=== PATIENT | female | born 2005 | race Caucasian/White ===

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

== ENCOUNTER 2024-03-15 13:33 | Emergency (ER) | payer SELFPAY ==
[2024-03-15 13:35] VITALS: BP 108/57; PULSE 119; RESP 18; TEMP 36.6; O2SAT 97
[2024-03-15 13:43] VITALS: BP 108/57; PULSE 119; RESP 18; TEMP 36.6; O2SAT 97
[2024-03-15 14:23] LABS: Source Nasopharynx
[2024-03-15] MEDS: Lactated Ringers 1,000 ML 1000 ML IV (15:00)
[2024-03-15] MEDS: Ketorolac 15 MG/ML VIAL IVP (15:00)
[2024-03-15] MEDS: Acetaminophen 325 MG TAB 650 MG PO (15:00)
[2024-03-15 15:04] LABS: COVID-19 PCR POSITIVE (Negative)
[2024-03-15] MEDS: Ondansetron 4 MG/2 ML VIAL IVP (15:17)
[2024-03-15 15:19] LABS: Abs Immature Grans 0.02 10^3/uL (0.0-0.06); Absolute Basophil Count 0.03 10^3/uL (0.0-0.2); Absolute Eosinophil Count 0.02 10^3/uL (0.0-0.7); Absolute Monocyte Count 0.61 10^3/uL (0.1-0.8); Absolute Neutrophil Count 4.74 10^3/uL (1.2-6.7); Basophils % 0.5 %; Eosinophils % 0.3 %; HCT 36.9 % (36.0-46.0); HGB 12.7 g/dL (11.2-15.7); Immature Grans % 0.3 %; Lymphocytes % 6.9 %; MCH 29.2 pg (27.0-33.0); MCHC 34.4 % (32.0-36.0); MCV 85 fL (80-95); MPV 9.9 fL (8.0-11.0); Monocytes % 10.5 %; Neutrophils % 81.5 %; Platelet Count 222 10^3/uL (130-400); RBC 4.35 10^6/uL (3.93-5.22); RDW 12.5 % (11.7-14.6); RDW-SD 38.3 fL; WBC 5.82 10^3/uL (4.4-10.8)
[2024-03-15 15:35] LABS: Mono Screening Negative (Negative)
[2024-03-15 15:38] LABS: ALT 23 U/L (14-59); AST 12 U/L (15-37); Albumin 4.3 g/dL (3.4-5.0); Alkaline Phosphatase 82 U/L (46-116); Anion Gap 11.2 mmol/L (3-11); BUN 14 mg/dL (7-18); Bilirubin, Total 0.4 mg/dL (0.2-1.0); CO2 24.8 mmol/L (21.0-32.0); CREATININE 0.8 mg/dL (0.55-1.02); Calcium 9.3 mg/dL (8.5-10.1); Chloride 106 mmol/L (98-107); Estimated GFR 108.78 (mL/min/1.73m2); Glucose 92 mg/dL (74-106); Potassium 3.8 mmol/L (3.5-5.1); Sodium 142 mmol/L (136-145); Total Protein 8.1 g/dL (6.4-8.2)
[2024-03-15 16:26] VITALS: BP 98/50; PULSE 109; RESP 16; O2SAT 100
--- NOTE | 2024-03-15 16:30 | ED.GENADUL_ITS ---
Discharge Plan Disposition Patient Disposition: Home Condition: Stable Discharge Details Clinical Impression: COVID Primary Care Provider: Unknown,Unknown ED Provider: Ricardo Araujo Home Meds and New Rx's Prescriptions: Continued norethindrone-e.estradiol-iron [ (28)] 1.5 mg-30 mcg (21)/75 mg (7) tablet 1 tab PO DAILY Qty: 84 5RF albuterol sulfate 90 mcg/actuation HFA aerosol inhaler 2 puff inhalation Q6H PRN (Reason: shortness of breath or wheezing) Qty: 6.7 0RF Discharge Instructions Instructions: COVID-19 (Coronavirus Disease 2019) (ED) Additional Instructions: Please drink plenty fluids and allow for plenty of rest. Please maintain home isolation for the next 5 days. Wear a high-quality mask if you must be around others at home and in public. Do not go places where you are unable to wear a mask. For travel guidance, see CDC?s Travel webpage. Do not travel. Stay home and separate from others as much as possible. Use a separate bathroom, if possible. Take steps to improve ventilation at home, if possible. Don?t share personal household items, like cups, towels, and utensils. Monitor your symptoms. If you have an emergency warning sign (like trouble breathing), seek emergency medical care immediately. You may end isolation after day 5 if your symptoms are improving and you are fever free for 24 hours without the use of fever reducing medication. If your symptoms are not improving at day 5 continue to isolate until symptoms are improving and you are fever free for 24 hours without the use of fever reducing medication. Please contact your primary care physician to arrange follow-up. Return to the ER immediately for any worsening or new concerning symptoms. HPI General Mode of arrival: ambulatory . Date/Time Provider Initiated Documentation: 03/15/24 14:02 . Limitations to Documentation: no limitations . Information obtained by: patient . HPI Narrative: 18-year-old female presents with chief complaint of generally not feeling well. Patient notes she started have sore throat last night. She has had fever, body aches, nausea and vomiting. Symptoms are moderate. She notes she has been able to drink much fluid and feels dehydrated. She is requesting IV fluids. Patient notes sore throat is not currently present. Related Data Home Medications Medication Instructions Recorded Confirmed norethindrone 1.5 mg-ethinyl 1 tab PO DAILY #84 tabs 05/30/23 03/15/24 estradiol 30 mcg(21)/iron 75 mg(7) tablet ( ()) albuterol sulfate 90 mcg/actuation 2 puff inhalation Q6H PRN 06/23/23 03/15/24 aerosol inhaler shortness of breath or wheezing #6.7 grams Previous Rx's Medication Instructions Recorded norethindrone 1.5 mg-ethinyl 1 tab PO DAILY #84 tabs 05/30/23 estradiol 30 mcg(21)/iron 75 mg(7) tablet ( ()) albuterol sulfate 90 mcg/actuation 2 puff inhalation Q6H PRN 06/23/23 aerosol inhaler shortness of breath or wheezing #6.7 grams Allergies Allergy/AdvReac Type Severity Reaction Status Date / Time No Known Allergies Allergy Verified 03/15/24 13:39 General Stated Complaint: Sorethroat CARSON: 3 Review of Systems Constitutional Constitutional: Reports as per HPI ENT Ears, Nose, Mouth, and Throat: Reports as per HPI Cardiovascular Cardiovascular: Denies dyspnea Respiratory Respiratory: Denies cough and Denies dyspnea Exam Const General: cooperative and no acute distress HENSC Mouth: moist mucous membranes Eyes Conjunctivae: normal conjunctivae Sclera: normal sclerae Neck Neck: trachea midline and supple Resp Auscultation: clear to auscultation bilaterally, no rales, no rhonchi and no wheezes Cardio Rate: tachycardic Rhythm: regular rhythm GI Palpation: soft, not firm, no guarding, no masses, not rigid and nontender Skin General skin exam: no rashes or lesions noted Neuro General: patient alert, patient awake and tone normal Extrem General: no edema Psych Appearance: grossly normal Mental Status: mental status grossly normal Course Vital Signs Vital signs: Vital Signs Temperature 36.6 C 03/15/24 13:35 Pulse 119 H 03/15/24 13:35 Respiratory Rate 18 03/15/24 13:35 Blood Pressure 108/57 L 03/15/24 13:35 Pulse Oximetry 97 03/15/24 13:35 Temperature 36.6 C 03/15/24 13:43 Temperature Source Tympanic 03/15/24 13:43 Pulse 109 H 03/15/24 16:26 Respiratory Rate 16 03/15/24 16:26 Respiratory Effort Normal, Non-Labored 03/15/24 13:43 Blood Pressure 98/50 L 03/15/24 16:26 Blood Pressure Position Sitting 03/15/24 13:43 Pulse Oximetry 100 03/15/24 16:26 Oxygen Delivery Method Room Air 03/15/24 16:26 Oxygen Flow Rate 0 03/15/24 16:26 Pain Level 0 03/15/24 16:26 Comment No OTC pain relief 03/15/24 13:43 Lab/Test Results Lab/Test Results: Laboratory Tests Range/Units 03/15/24 03/15/24 14:06 15:00 WBC (4.4-10.8) 10^3/uL 5.82 RBC (3.93-5.22) 10^6/uL 4.35 Hgb (11.2-15.7) g/dL 12.7 Hct (36.0-46.0) % 36.9 MCV (80-95) fL 85 MCH (27.0-33.0) pg 29.2 MCHC (32.0-36.0) % 34.4 RDW (11.7-14.6) % 12.5 Plt Count (130-400) 10^3/uL 222 MPV (8.0-11.0) fL 9.9 Immature Gran % % 0.3 Neutrophils % % 81.5 Lymphocytes % % 6.9 Monocytes % % 10.5 Eosinophils % % 0.3 Basophils % % 0.5 Nucleated RBC % (0.0-0.3) % 0.0 Absolute Neutrophils (1.2-6.7) 10^3/uL 4.74 Absolute Lymphocytes (1.2-3.4) 10^3/uL 0.40 L Absolute Monocytes (0.1-0.8) 10^3/uL 0.61 Absolute Eosinophils (0.0-0.7) 10^3/uL 0.02 Absolute Basophils (0.0-0.2) 10^3/uL 0.03 Sodium (136-145) mmol/L 142 Potassium (3.5-5.1) mmol/L 3.8 Chloride (98-107) mmol/L 106 Carbon Dioxide (21.0-32.0) mmol/L 24.8 Anion Gap (3-11) mmol/L 11.2 H BUN (7-18) mg/dL 14 Creatinine (0.55-1.02) mg/dL 0.8 Est GFR (CKD-EPI 2020) (mL/min/1.73m2) 108.78 Glucose (74-106) mg/dL 92 Calcium (8.5-10.1) mg/dL 9.3 Total Bilirubin (0.2-1.0) mg/dL 0.4 AST (15-37) U/L 12 L ALT (14-59) U/L 23 Alkaline Phosphatase (46-116) U/L 82 Total Protein (6.4-8.2) g/dL 8.1 Albumin (3.4-5.0) g/dL 4.3 COVID-19 Source Nasopharynx SARS-CoV-2 (PCR) (Negative) POSITIVE A* Monoscreen (Negative) Negative POC Strep Test-DIMPLE(Rapid) Start: 03/15/24 14:02 Freq: .Rapid Strep Test Status: Active Protocol: Document 03/15/24 14:42 TERESA (Rec: 03/15/24 14:42 TEREAS [id number]) Strep test-DIMPLE(Rapid)-POC POC-Strep test-DIMPLE (Rapid) Negative POC-Strep test-DIMPLE (Rapid) Negative Medical Decision Making 18-year-old female here today with viral symptoms including sore throat since yesterday, fatigue, body aches, nausea. Patient appears clinically dehydrated. Patient is tachycardic. She is saturating well in no respiratory distress. No signs of focal bacterial infection. Patient was given Zofran IV for nausea. Patient reassessed after IVF and has remained stable. Plan for discharge with outpatient follow-up. Usual customary discharge instructions for COVID illness provided to the patient. Quality:SDOH Health Related Social Needs: No Data to Display PFSH All Active Problems COVID (Acute) Social History Smoking/Tobacco Use Status: Former Tobacco Use Smoking risk assessment performed?: Yes Alcohol Intake: never Substance use type: does not use Housing: apartment Additional Social history: unable to assess privately Female Reproductive History Menstrual Age of Menarche: 11 control method: pills and condoms History History 0 Para Hx # Term Pregnancies Multiple births Hx # Pregnancies Ectopic pregnancies AB induced Hx Number of Living Children AB spontaneous
== END 2024-03-15 16:48 | disposition home or self-care (01) ==
PROVIDERS: Emergency Provider Student in an Organized Health Care Education/Training Program
DX: U07.1 COVID-19 (principal); R07.0 Pain in throat; R11.2 Nausea with vomiting, unspecified; R52 Pain, unspecified; Z11.52 Encounter for screening for COVID-19
CPT/HCPCS: 80053; 87635; 96361; 96374; 96375; 99284; 85025; 86308; 99283; J1885; J2405

== ENCOUNTER 2024-05-06 21:16 | Outpatient (REF) | payer MEDICAID, SELFPAY | END 2024-05-06 21:17 | disposition home or self-care (01) | LOC: NCHCN 21:16 | PROVIDERS: Visit Provider Physician Assistant | DX: J02.9 Acute pharyngitis, unspecified (principal) | CPT/HCPCS: 87070 ==

== ENCOUNTER 2024-05-31 00:38 | Outpatient (CLI) | payer MEDICAID, SELFPAY ==
[2024-05-31 15:02] LABS: Panorama Kit Sent via Fed Ex
[2024-05-31 15:05] LABS: Abs Immature Grans 0.01 10^3/uL (0.0-0.06); Absolute Basophil Count 0.04 10^3/uL (0.0-0.2); Absolute Eosinophil Count 0.09 10^3/uL (0.0-0.7); Absolute Lymphocyte Count 1.99 10^3/uL (1.2-3.4); Absolute Monocyte Count 0.58 10^3/uL (0.1-0.8); Absolute Neutrophil Count 5.56 10^3/uL (1.2-6.7); Basophils % 0.5 %; Eosinophils % 1.1 %; HCT 40.3 % (36.0-46.0); Immature Grans % 0.1 %; Lymphocytes % 24.1 %; MCH 30.7 pg (27.0-33.0); MCHC 34.7 % (32.0-36.0); MCV 88 fL (80-95); MPV 9.8 fL (8.0-11.0); Neutrophils % 67.2 %; Platelet Count 237 10^3/uL (130-400); RBC 4.56 10^6/uL (3.93-5.22); RDW 12.2 % (11.7-14.6); RDW-SD 39.4 fL; WBC 8.27 10^3/uL (4.4-10.8)
[2024-05-31 15:51] LABS: FREE T4 1.16 ng/dL (0.76-1.46)
[2024-06-01 09:09] LABS: HIV-1/2 Ag & Ab Screen Negative (Negative)
[2024-06-03 09:25] LABS: Hepatitis B Surface Ag Negative (Negative)
[2024-06-03 09:55] LABS: Hepatitis C Ab w Rflx HCV PCR Negative (Negative)
[2024-06-03 09:57] LABS: Varicella IgG Antibody Positive (See Note)
[2024-06-03 10:00] LABS: Rubella IgG Ab (UVM) Positive (See Note)
[2024-06-03 18:50] LABS: Syphilis IgG w/Reflex Nonreactive (Nonreactive)
[2024-06-11 11:34] LABS: Result Summary NEGATIVE; Specimen WB Whole Blood
== END 2024-05-31 00:39 | disposition home or self-care (01) ==
LOC: LBO 00:38
PROVIDERS: Visit Provider Advanced Practice Midwife
DX: Z34.91 Encounter for supervision of normal pregnancy, unspecified, first trimester
CPT/HCPCS: 36415; 81220; 81222; 86787; 86803; 86850; 86900; 86901; 87340; 87389; 84439; 84443; 85025; 86762; 86780

== ENCOUNTER 2024-05-31 21:42 | Outpatient (REF) | payer MEDICAID, SELFPAY ==
[2024-05-31 18:37] LABS: *AMPHETAMINES SCREEN URINE Negative (Negative); *BARBITURATES SCREEN URINE Negative (Negative); *BENZODIAZEPINES SCREEN URINE Negative (Negative); Cannabinoids THC Negative (Negative); Cocaine Screen,Urine Negative (Negative); METHADONE URINE SCREEN Negative (Negative); OPIATES URINE SCREEN Negative (Negative)
[2024-05-31 18:39] LABS: Tricyclic Antidepressants Negative (Negative)
[2024-06-03 12:16] LABS: Chlamydia Result Negative (Negative); GC Result Negative (Negative)
[2024-06-07 09:16] LABS: Buprenorphine Negative ng/mL (Cutoff: 5.0); Norbuprenorphine Negative ng/mL (Cutoff: 2.5)
== END 2024-05-31 21:43 | disposition home or self-care (01) ==
LOC: LBN 21:42
PROVIDERS: PCP Advanced Practice Midwife; Visit Provider Advanced Practice Midwife
DX: Z34.91 Encounter for supervision of normal pregnancy, unspecified, first trimester (principal)
CPT/HCPCS: 80307; 80348; 87491; 87591; 87086

== ENCOUNTER 2024-06-05 10:22 | Emergency (ER) | payer MEDICAID, SELFPAY ==
[2024-06-05 10:23] VITALS: BP 100/65; PULSE 88; RESP 16; TEMP 36.6; O2SAT 99
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
[2024-06-05] MEDS: Lidocaine 5% Patch 1 PATCH TP (11:05)
--- NOTE | 2024-06-05 11:05 | NUR.NOTE ---
Nursing Note: patient declined APAP says she took dose at home around 8
== END 2024-06-05 10:59 | disposition home or self-care (01) ==
LOC: ER 10:58
PROVIDERS: Emergency Provider Emergency Medicine; PCP Advanced Practice Midwife
DX: M53.3 Sacrococcygeal disorders, not elsewhere classified (principal); Z34.91 Encounter for supervision of normal pregnancy, unspecified, first trimester
CPT/HCPCS: 76815; 76857; 99283

== ENCOUNTER 2024-06-07 01:21 | Outpatient (CLI) | payer MEDICAID, SELFPAY ==
[2024-06-07 12:05] LABS: Glucose,1 Hr (Glucola) 81 mg/dL (80-140)
== END 2024-06-07 01:22 | disposition home or self-care (01) ==
LOC: LBO 01:21
PROVIDERS: PCP Advanced Practice Midwife; Visit Provider Advanced Practice Midwife
DX: Z34.91 Encounter for supervision of normal pregnancy, unspecified, first trimester (principal); Z3A.12 12 weeks gestation of pregnancy
CPT/HCPCS: 36415; 82950

== ENCOUNTER 2024-06-18 18:40 | Emergency (ER) | payer MEDICAID, SELFPAY ==
[2024-06-18 18:49] VITALS: BP 112/75; PULSE 81; RESP 20; TEMP 36.2; O2SAT 99
[2024-06-18 19:59] VITALS: BP 112/75; PULSE 76; RESP 18; TEMP 36.2; O2SAT 98
[2024-06-18 20:02] LABS: Abs Immature Grans 0.03 10^3/uL (0.0-0.06); Absolute Basophil Count 0.02 10^3/uL (0.0-0.2); Absolute Eosinophil Count 0.09 10^3/uL (0.0-0.7); Absolute Lymphocyte Count 1.67 10^3/uL (1.2-3.4); Absolute Neutrophil Count 6.06 10^3/uL (1.2-6.7); Basophils % 0.2 %; Eosinophils % 1.1 %; HCT 32.1 % (36.0-46.0); HGB 11.1 g/dL (11.2-15.7); Immature Grans % 0.4 %; Lymphocytes % 20.2 %; MCHC 34.6 % (32.0-36.0); MCV 90 fL (80-95); MPV 9.6 fL (8.0-11.0); Monocytes % 4.8 %; Neutrophils % 73.3 %; Platelet Count 205 10^3/uL (130-400); RBC 3.58 10^6/uL (3.93-5.22); RDW 12.2 % (11.7-14.6); RDW-SD 39.5 fL; WBC 8.27 10^3/uL (4.4-10.8)
[2024-06-18 20:22] LABS: ALT 11 U/L (14-59); AST 9 U/L (15-37); Albumin 3.6 g/dL (3.4-5.0); Alkaline Phosphatase 53 U/L (46-116); BUN 8 mg/dL (7-18); Bilirubin, Total 0.17 mg/dL (0.2-1.0); CREATININE 0.6 mg/dL (0.55-1.02); Calcium 8.9 mg/dL (8.5-10.1); Chloride 104 mmol/L (98-107); Glucose 101 mg/dL (74-106); Potassium 3.8 mmol/L (3.5-5.1); Sodium 139 mmol/L (136-145); Total Protein 7.1 g/dL (6.4-8.2)
[2024-06-18 20:25] LABS: Bilirubin Negative (Negative); Blood Negative (Negative); Clarity Clear (Clear); Glucose Negative (Negative); Ketones 15 mg/dL (Negative); Leukocyte Esterase Negative (Negative); Nitrite Negative (Negative); Specific Gravity 1.025 (1.005-1.025)
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
[2024-06-18 21:25] VITALS: BP 112/75; PULSE 76; RESP 18; TEMP 36.2; O2SAT 98
== END 2024-06-18 21:25 | disposition home or self-care (01) ==
LOC: ER 21:58
PROVIDERS: Emergency Provider Physician Assistant; PCP Advanced Practice Midwife
DX: O99.612 Diseases of the digestive system complicating pregnancy, second trimester (principal); K92.1 Melena; O26.892 Other specified pregnancy related conditions, second trimester; M54.50 Low back pain, unspecified; Z3A.14 14 weeks gestation of pregnancy
CPT/HCPCS: 80053; 99283; 81003; 85025

== ENCOUNTER 2024-06-24 18:10 | Emergency (ER) | payer MEDICAID, SELFPAY ==
[2024-06-24 18:14] VITALS: BP 106/73; PULSE 96; RESP 10; TEMP 37.1; O2SAT 98
[2024-06-24 19:28] LABS: COVID-19 PCR Negative (Negative); Influenza A PCR Negative (Negative); Influenza B PCR Negative (Negative); RSV PCR Negative (Negative); Source NASOPHARYNX
[2024-06-24 19:44] VITALS: BP 106/73; PULSE 90; RESP 12; TEMP 37.1; O2SAT 98
[2024-06-24 19:46] VITALS: BP 106/73; PULSE 90; RESP 12; TEMP 37.1; O2SAT 98
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
== END 2024-06-24 19:43 | disposition home or self-care (01) ==
PROVIDERS: Emergency Provider Emergency Medicine
DX: O99.512 Diseases of the respiratory system complicating pregnancy, second trimester (principal); J02.9 Acute pharyngitis, unspecified; Z87.891 Personal history of nicotine dependence; Z3A.14 14 weeks gestation of pregnancy
CPT/HCPCS: 81025; 87637; 87880; 99283; 87081

== ENCOUNTER 2024-07-23 09:23 | Outpatient (REF) | payer MEDICAID, SELFPAY ==
[2024-07-23 22:41] LABS: COVID-19 PCR Negative (Negative); Influenza A PCR Negative (Negative); Influenza B PCR Negative (Negative); RSV PCR Negative (Negative)
[2024-07-23 22:46] LABS: Source Nasopharynx
== END 2024-07-23 09:24 ==
LOC: LBN 09:23
PROVIDERS: Visit Provider Nurse Practitioner Family
DX: J06.9 Acute upper respiratory infection, unspecified (principal)
CPT/HCPCS: 87637

== ENCOUNTER 2024-07-26 00:26 | Outpatient (CLI) | payer MEDICAID, SELFPAY ==
--- NOTE | 2024-07-26 06:45 | DI.US_ITS ---
Exam(s) US OB 2-3 TRIMESTER EXAM: US OB 2-3 TRIMESTER CLINICAL HISTORY: SURVEY,Z34.90,Z34.91. TECHNIQUE: Transabdominal obstetrical ultrasound performed. COMPARISON: No exams were available for comparison FINDINGS: Number of fetuses: 1 position: CEPHALIC heart rate: 138bpm Placental location: There is a grade 1 anterior placenta. The placental tip is 4.6 cm from the inter nal os. No evidence of previa. Amniotic fluid index: Amount of fluid is within normal limits. ANATOMICAL SURVEY: Within normal limits. However, the nose, lips and palate could not be visualized due to the lie of the fetus. BIOMETRIC DATA: BPD: 4.55cm, 19weeks 5days HC: 17.2cm, 19weeks 5days AC: 14.77cm, 20weeks FL: 3.32cm, 20weeks 3days Cisterna magna: 3.3mm Cerebellum: 1.92cm Lateral ventricle: 0.7 cm EFW: 335.21g, 0.73lb, 84.8% Composite Age: 20weeks NICOLE: 12/13/2024 Heart Rate: 138bpm ANATOMICAL SURVEY: Four-chambered heart: Unremarkable. RVOT: Unremarkable. LVOT: Unremarkable. Left-sided stomach: Unremarkable. urinary bladder: Unremarkable. Bilateral kidneys: Unremarkable. Three-vessel cord: Unremarkable. Cord insertion: Unremarkable. Posterior fossa: Unremarkable. ventricles: Unremarkable. nose/lips: Not visualized due to the lie of the fetus. Palate: Not visualized due to the lie of the fetus. spine: Unremarkable. Two arms and two legs: Unremarkable. IMPRESSION: 1. Single live intrauterine gestation as above. 2. The nose, lips and palate could not be visualized adequately due to the lie of the fetus. T he patient is scheduled to return on 08/02/2024 to complete the anatomic survey. 3. The remainder of the anatomic survey was within normal limits. DATA REPOSITORY:
== END 2024-07-26 00:46 ==
LOC: DI 00:26
PROVIDERS: Visit Provider Advanced Practice Midwife
DX: Z34.92 Encounter for supervision of normal pregnancy, unspecified, second trimester (principal); Z3A.19 19 weeks gestation of pregnancy
CPT/HCPCS: 76805

== ENCOUNTER 2024-08-02 18:27 | Outpatient (CLI) | payer MEDICAID, SELFPAY ==
[2024-08-02 18:33] VITALS: BP 108/60; PULSE 77; PULSE 78; PULSE 82; O2SAT 100
[2024-08-02 18:34] VITALS: BP 108/60; PULSE 77; RESP 16; TEMP 36.5; O2SAT 100
--- NOTE | 2024-08-03 13:32 | W.OBNST ---
Date of service: 08/02/24 Time of Service: 21:00 NST Evaluation Reason for NST Reasons for Nonstress Test: OTHER, SEE COMMENT (20 weeks, lower abd cramps, loose stool x4 today) Reason for NST Other: 20 weeks Vital Signs Blood Pressure: 108/60 Pulse: 77 Temperature: 97.7 F Urine Results Urine Protein: Negative Urine Ketones: Negative Urine Glucose: Negative Urine Blood: Negative NST Information Comments: too early for NST, FHT 148, no contractions reported or palpable NST Evaluation Patient States Movement: Present FHR Baseline: 148 NST Results Other: reassuring status verified, no labor Note Ultrasound Done: N/A. NST Note Note: Cvx closed, thick posterior and firm, no presenting parts in pelvis Discharged to home Advised Imodium PO if loose stools resume NST Reviewed and Verified by: Chaparrita Avery
[2024-08-03 13:36] VITALS: BP 108/60; PULSE 77; TEMP 36.5
== END 2024-08-02 19:00 ==
LOC: BCD 18:27 → OBS 18:29
PROVIDERS: Visit Provider Advanced Practice Midwife
DX: O26.892 Other specified pregnancy related conditions, second trimester (principal); R10.30 Lower abdominal pain, unspecified; Z3A.20 20 weeks gestation of pregnancy
CPT/HCPCS: 59025

== ENCOUNTER 2024-08-11 16:04 | Outpatient (CLI) | payer MEDICAID, SELFPAY ==
[2024-08-11 16:45] VITALS: BP 110/60; PULSE 80; RESP 16; TEMP 36.6; O2SAT 99
--- NOTE | 2024-08-11 18:35 | W.PM.PROGNOT ---
Date of Service Date of service: 08/11/24 Time of Service: 18:35 Assessment and Plan Assessment and plan (1) Decreased movement during : Status: Acute Assessment and plan: 19 yo G1 @ 21+5 wks Pt reports no movement all day, no pain, bleeding or vomiting. FHT 140's and reassuring per doptone Maternal vital signs are WNL Pt feels reassured, to keep next appointment as scheduled. Qualifiers: Fetus number: single or unspecified fetus Trimester: second trimester Qualified Code(s): O36.8120 - Decreased movements, second trimester, not applicable or unspecified Subjective Subjective Interval history since last seen: No movement all day, worried and wants the FHT to be checked. Objective Last Vital Signs Temp 97.9 F 08/11/24 16:45 Pulse 80 08/11/24 16:45 Resp 16 08/11/24 16:45 BP 110/60 08/11/24 16:45 Pulse Ox 99 08/11/24 16:45 Objective Narrative Objective Narrative: FHT 140's, regular and without decel per 5 minute doptone. Pt felt baby kick duirng exam Time Spent with Patient Time Spent with Patient: <25 minutes Time was spent: preparing to see the patient(eg.review tests), obtaining and/or reviewing separately otained hiistory, ordering medications,tests, procedures, indepentently interpreting results and counseling the patient
== END 2024-08-11 16:55 ==
LOC: PRC 16:06 → BCD 16:07 → OBS 16:54
PROVIDERS: Visit Provider Advanced Practice Midwife
DX: O36.8120 Decreased fetal movements, second trimester, not applicable or unspecified (principal); Z3A.21 21 weeks gestation of pregnancy
CPT/HCPCS: 99211

== ENCOUNTER 2024-08-28 12:11 | Emergency (ER) | payer MEDICAID, SELFPAY ==
[2024-08-28 12:15] VITALS: BP 117/63; PULSE 105; RESP 20; TEMP 36.3; O2SAT 98
[2024-08-28 12:18] VITALS: BP 117/63; PULSE 105; RESP 20; TEMP 36.3; O2SAT 98
--- NOTE | 2024-08-28 13:40 | DI.RAD_ITS ---
Exam(s) XR CHEST 2V PA LATERAL EXAM: XR CHEST 2V PA LATERAL CLINICAL HISTORY: Cough, sputum, eval PNA TECHNIQUE: 2D digital imaging was performed. Two views. COMPARISON: CR,XR XR CHEST 2V PA LATERAL from 06/23/2023 FINDINGS: Exam is limited by poor pulmonary inflation. HEART: Normal size. Aorta: Not dilated. PULMONARY VASCULATURE: Normal. MEDIASTINUM: Unremarkable. LUNGS: Clear. PLEURAL SPACE: No pleural effusion or pneumothorax. BONE:Unremarkable for age. SOFT TISSUES: Unremarkable. IMPRESSION: No acute abnormality. DATA REPOSITORY: RADIATION DOSE DELIVERED:
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
[2024-08-28 14:03] LABS: COVID-19 PCR Negative (Negative); Influenza A PCR Negative (Negative); Influenza B PCR Negative (Negative); RSV PCR Negative (Negative); Source Nasopharynx
[2024-08-28 14:10] VITALS: PULSE 92; RESP 16; TEMP 36.2; O2SAT 99
== END 2024-08-28 15:00 | disposition home or self-care (01) ==
PROVIDERS: Emergency Provider Emergency Medicine; PCP Nurse Practitioner Women's Health
DX: O99.512 Diseases of the respiratory system complicating pregnancy, second trimester (principal); J06.9 Acute upper respiratory infection, unspecified; B97.89 Other viral agents as the cause of diseases classified elsewhere; J45.909 Unspecified asthma, uncomplicated; Z3A.24 24 weeks gestation of pregnancy
CPT/HCPCS: 87637; 99284; 71046

== ENCOUNTER 2024-09-23 14:23 | Outpatient (CLI) | payer MEDICAID, SELFPAY ==
[2024-09-23 14:36] LABS: HCT 32.4 % (36.0-46.0); HGB 10.9 g/dL (11.2-15.7); MCH 30.4 pg (27.0-33.0); MCHC 33.6 % (32.0-36.0); MCV 91 fL (80-95); MPV 9.5 fL (8.0-11.0); Platelet Count 277 10^3/uL (130-400); RBC 3.58 10^6/uL (3.93-5.22); RDW 11.6 % (11.7-14.6); RDW-SD 38.5 fL; WBC 10.99 10^3/uL (4.4-10.8)
[2024-09-23 14:45] LABS: Glucose,1 Hr (Glucola) 89 mg/dL (80-140)
== END 2024-09-23 14:24 | disposition home or self-care (01) ==
LOC: LBO 14:23
PROVIDERS: Advanced Practice Midwife; PCP Nurse Practitioner Women's Health; Visit Provider Advanced Practice Midwife
DX: Z34.92 Encounter for supervision of normal pregnancy, unspecified, second trimester (principal)
CPT/HCPCS: 36415; 82950; 85027

== ENCOUNTER 2024-10-05 11:38 | Outpatient (CLI) | payer MEDICAID, SELFPAY ==
[2024-10-05 13:01] VITALS: BP 116/73; PULSE 103; TEMP 36.7
--- NOTE | 2024-10-05 13:13 | W.OBNST ---
Date of service: 10/05/24 Time of Service: 13:13 NST Evaluation Reason for NST Reasons for Nonstress Test: LABOR Gestational Age Gestational Age in Weeks and Days: 29 Weeks and 4Days Test and Monitor Explained Test/Monitor Explained: Test Explained, Monitor Explained and Patient Verbalized Understanding Vital Signs Blood Pressure: 116/73 Pulse: 103 Temperature: 98.1 F Urine Results Urine Protein: Negative Urine Ketones: Positive Urine Glucose: Negative Urine Blood: Negative NST Information Date on Monitor: 10/05/24 Time on Monitor: 12:23 Date off Monitor: 10/05/24 Time off Monitor: 12:47 Total Time on Monitor: 24 NST Interventions: None Contraction Frequency: rare NST Evaluation Patient States Movement: Present FHR Baseline: 145 Variability: Moderate 6-25 bpm Accelerations: 10x10 Decelerations: None NST Results: Reactive Note Ultrasound Done: N/A. NST Note Note: SSE performed, VPS sample taken, cvx closed, no bleeding Digital exam: closed, thick, firm, posterior, no presenting part in pelvis, intact membranes d/c home for rest, call if sx return or worsen NST Reviewed and Verified by: Chaparrita Avery
[2024-10-05 13:15] VITALS: BP 116/73; PULSE 103; TEMP 36.7
== END 2024-10-05 13:15 | disposition home health service (06) ==
LOC: BCD 11:39 → OBS 12:30
PROVIDERS: PCP Nurse Practitioner Women's Health; Visit Provider Advanced Practice Midwife
DX: O47.03 False labor before 37 completed weeks of gestation, third trimester (principal); Z3A.29 29 weeks gestation of pregnancy
CPT/HCPCS: 59025; 87480; 87510; 87660

== ENCOUNTER 2024-10-10 11:38 | Outpatient (CLI) | payer MEDICAID, SELFPAY ==
[2024-10-10 13:00] LABS: TSH (W/Ref FT4) 2.25 uIU/mL (0.36-3.74)
== END 2024-10-10 11:39 | disposition home or self-care (01) ==
LOC: LOS 11:39
PROVIDERS: PCP Nurse Practitioner Women's Health; Visit Provider Advanced Practice Midwife
DX: Z34.93 Encounter for supervision of normal pregnancy, unspecified, third trimester (principal)
CPT/HCPCS: 36415; 84443

== ENCOUNTER 2024-10-20 21:54 | Emergency (ER) | payer MEDICAID, SELFPAY ==
[2024-10-20] VITALS (14 sets, daily range): BP systolic 109–119; BP diastolic 61–76; PULSE 94–103; RESP 20; TEMP 36.4; O2SAT 95–100
[2024-10-20] MEDS: Loratidine 10 MG TAB PO (22:36)
[2024-10-20] MEDS: Budesonide/Formoterol 160/4.5 6 GM 60 PUFF INH IH (22:55)
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
[2024-10-20 23:23] LABS: COVID-19 PCR Negative (Negative); Influenza A PCR Negative (Negative); Influenza B PCR Negative (Negative); RSV PCR Negative (Negative); Source Nasopharynx
== END 2024-10-20 23:45 | disposition home or self-care (01) ==
PROVIDERS: Emergency Provider Student in an Organized Health Care Education/Training Program; PCP Nurse Practitioner Women's Health
DX: O99.513 Diseases of the respiratory system complicating pregnancy, third trimester (principal); J06.9 Acute upper respiratory infection, unspecified; J45.909 Unspecified asthma, uncomplicated; Z3A.32 32 weeks gestation of pregnancy; Z87.891 Personal history of nicotine dependence
CPT/HCPCS: 87637; 87880; 99283

== ENCOUNTER 2024-11-01 11:02 | Observation (INO) | payer OTHER, MEDICAID, SELFPAY ==
[2024-11-01 11:03] VITALS: BP 113/68; PULSE 86; RESP 19; O2SAT 97
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
[2024-11-01 12:40] VITALS: BP 92/51; PULSE 74; RESP 20; TEMP 36.7; O2SAT 99
[2024-11-01 13:00] VITALS: BP 92/51; PULSE 74; TEMP 36.6
[2024-11-01 15:56] VITALS: BP 89/54; PULSE 80
[2024-11-01] MEDS: Acetaminophen 500 MG TAB 1000 MG PO (15:57)
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
[2024-11-01 17:01] VITALS: BP 115/77; PULSE 86
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
--- NOTE | 2024-11-01 20:20 | W.OBNST ---
Date of service: 11/01/24 Time of Service: 20:20 NST Evaluation Reason for NST Reasons for Nonstress Test: OTHER, SEE COMMENT Reason for NST Other: Well Being after patient fall on ice outside of hospital Gestational Age Gestational Age in Weeks and Days: 33 Weeks and 6Days Test and Monitor Explained Test/Monitor Explained: Test Explained and Monitor Explained Vital Signs Blood Pressure: 92/51 Pulse: 74 Temperature: 97.9 F Urine Results Urine Protein: Negative Urine Ketones: Negative Urine Glucose: Negative Urine Blood: Negative NST Information Date on Monitor: 11/01/24 Time on Monitor: 12:00 Date off Monitor: 11/01/24 Time off Monitor: 12:59 Total Time on Monitor: 59 NST Interventions: PO Hydration NST Evaluation Patient States Movement: Present FHR Baseline: 130 Variability: Moderate 6-25 bpm Accelerations: 15x15 and 10x10 Decelerations: None NST Results: Reactive Note Ultrasound Done: N/A. NST Note Note: NST performed after a fall on the ice at 33 weeks gestation during which she landed on her right side. Yonis was evaluated in the ED and transferred to the Center for further assessment. Reactive NST and experiencing mild right abdominal discomfort. Admitted to observation for 6 hours of continuous monitoring. NST Reviewed and Verified by: Paris Cortez
[2024-11-01 20:23] VITALS: BP 92/51; PULSE 74; TEMP 36.6
== END 2024-11-01 18:30 | disposition home or self-care (01) ==
LOC: ER 11:42 → BCD 12:46 → ER 12:47 → OBS 12:49 → BCD 13:16 → OBS 13:16
PROVIDERS: Admitting Provider Advanced Practice Midwife; Emergency Provider Student in an Organized Health Care Education/Training Program; PCP Nurse Practitioner Women's Health; Visit Provider Advanced Practice Midwife
DX: O9A.213 Injury, poisoning and certain other consequences of external causes complicating pregnancy, third trimester (principal); Z3A.33 33 weeks gestation of pregnancy; S39.81XA Other specified injuries of abdomen, initial encounter; W00.0XXA Fall on same level due to ice and snow, initial encounter
CPT/HCPCS: 59025; 76815; 99285

== ENCOUNTER 2024-11-26 14:14 | Outpatient (REF) | payer MEDICAID, SELFPAY | END 2024-11-26 14:15 | disposition home or self-care (01) | LOC: LBN 14:14 | PROVIDERS: PCP Nurse Practitioner Women's Health; Visit Provider Advanced Practice Midwife | DX: Z34.93 Encounter for supervision of normal pregnancy, unspecified, third trimester (principal) | CPT/HCPCS: 87081 ==

== ENCOUNTER 2024-11-27 20:38 | Inpatient (IN) | payer MEDICAID, SELFPAY ==
[2024-11-27 18:16] VITALS: BP 117/70; PULSE 88; TEMP 36.1
[2024-11-27 18:20] VITALS: BP 117/70; PULSE 92; RESP 16; TEMP 36.1
[2024-11-27 18:21] VITALS: BP 117/70; PULSE 92; RESP 16; TEMP 36.1; O2SAT 92
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
[2024-11-27 21:09] LABS: HCT 36.4 % (36.0-46.0); HGB 11.5 g/dL (11.2-15.7); MCH 27.4 pg (27.0-33.0); MCHC 31.6 % (32.0-36.0); MCV 87 fL (80-95); MPV 9.6 fL (8.0-11.0); Platelet Count 308 10^3/uL (130-400); RDW 12.8 % (11.7-14.6); RDW-SD 40.5 fL; WBC 10.34 10^3/uL (4.4-10.8)
[2024-11-27 21:51] LABS: ROM Plus Negative
[2024-11-27 22:27] VITALS: BP 117/70; PULSE 92; RESP 16; TEMP 36.1; O2SAT 92
[2024-11-28 06:07] VITALS: TEMP 36.5
[2024-11-28 07:58] VITALS: BP 117/58; PULSE 80
--- NOTE | 2024-11-28 08:16 | W.PM.OBNL1 ---
Date of service: 11/28/24 Time of Service: 08:17 Informed Consent Informed Consent: Augmentation of Labor, Induction of Labor and Risk,Benefits,Alternatives Discussed Pelvic Exam Dilation: 1 Effacement (%): 40 station: -3 Cervix Position: mid Consistency: firm BISHOPS Score(Cervical Ripeness Score): 1 Vaginal Exam Presentation: Vertex Pooling: Negative Ferning: Absent Comments: ROM Plus and Vaginal Pathogen screen pending Contractions Monitor Mode: None Contraction Frequency(min): irregular Contraction Duration(sec): 40 Fetus A Monitor: External (US) Heart Rate Baseline: 130 Presentation: Vertex Variability: Moderate (6-25 BPM) Categories: Category I Characteristics: Normal Accelerations: 15 X 15 Decelerations: None Amniotic Membrane Status: Intact (presumably, ROM plus pending, ROM negative 11/27 @ 2100) Assessment and Plan Assessment and plan (1) : Status: Acute Assessment and plan: A: ROM presumably ruled out 37w2d Cat1 FHT P: Pending a negative ROM Plus patient can discharge home and keep all scheduled visits. Objective Abnormal lab results 11/27/24 Range/Units 21:00 MCHC 31.6 L (32.0-36.0) % Temp Pulse Resp BP Pulse Ox 97.7 F 80 16 117/58 L 92 11/28/24 06:07 11/28/24 07:58 11/27/24 22:27 11/28/24 07:58 11/27/24 22:27 Laboratory Results WBC 10.34 10^3/uL (4.4-10.8) 11/27/24 21:00 RBC 4.20 10^6/uL (3.93-5.22) 11/27/24 21:00 Hgb 11.5 g/dL (11.2-15.7) 11/27/24 21:00 Hct 36.4 % (36.0-46.0) 11/27/24 21:00 MCV 87 fL (80-95) 11/27/24 21:00 MCH 27.4 pg (27.0-33.0) 11/27/24 21:00 MCHC 31.6 % (32.0-36.0) L 11/27/24 21:00 RDW 12.8 % (11.7-14.6) 11/27/24 21:00 Plt Count 308 10^3/uL (130-400) 11/27/24 21:00 MPV 9.6 fL (8.0-11.0) 11/27/24 21:00 Membranes Rupture Negative 11/27/24 21:22 ABO/Rh O Positive 11/27/24 21:00 Antibody Screen NEGATIVE 11/27/24 21:00 Subjective Patient Reports: No new Complaints Interval history since last seen: Slept overnight, took a shower this morning. Reports no continued leaking overnight. Evening ROM + test was negative. SSE done this morning. Results Hemoglobin/Hematocrit: Hgb 11.5 g/dL (11.2-15.7) 11/27/24 21:00 Hct 36.4 % (36.0-46.0) 11/27/24 21:00 Abnormal Lab Findings: Abnormal Labs 11/27/24 21:00 MCHC 31.6 L
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
[2024-11-28 09:08] LABS: ROM Plus Negative
[2024-11-28 09:38] VITALS: BP 117/58; PULSE 80; TEMP 37.3
--- NOTE | 2024-11-28 13:34 | W.OBNST ---
Date of service: 11/28/24 Time of Service: 09:00 NST Evaluation Reason for NST Reasons for Nonstress Test: OTHER, SEE COMMENT Reason for NST Other: well being prior to discharge. Gestational Age Gestational Age in Weeks and Days: 37 Weeks and 2Days Test and Monitor Explained Test/Monitor Explained: Test Explained, Monitor Explained and Patient Verbalized Understanding Vital Signs Blood Pressure: 117/58 Pulse: 80 Temperature: 99.1 F Urine Results Urine Protein: Negative Urine Ketones: Negative Urine Glucose: Negative Urine Blood: Negative NST Information Date on Monitor: 11/28/24 Time on Monitor: 09:20 Date off Monitor: 11/28/24 Time off Monitor: 09:46 Total Time on Monitor: 26 NST Interventions: PO Hydration NST Evaluation Patient States Movement: Present FHR Baseline: 130 Variability: Moderate 6-25 bpm Accelerations: 15x15 Decelerations: None NST Results: Reactive Note Ultrasound Done: N/A. NST Note NST Reviewed and Verified by: Stacia Su
[2024-11-28 13:35] VITALS: BP 117/58; PULSE 80; TEMP 37.3
== END 2024-11-28 09:50 | disposition home or self-care (01) | DRG 833 ==
LOC: BCD 20:48 → OBS 20:48
PROVIDERS: Admitting Provider Advanced Practice Midwife; PCP Nurse Practitioner Women's Health; Visit Provider Advanced Practice Midwife
DX: O9A.213 Injury, poisoning and certain other consequences of external causes complicating pregnancy, third trimester (principal); Z3A.37 37 weeks gestation of pregnancy; S39.81XA Other specified injuries of abdomen, initial encounter; W19.XXXA Unspecified fall, initial encounter
CPT/HCPCS: 84112; 85027; 86850; 86900; 86901; 59025; 87480; 87510; 87660; G0378

== ENCOUNTER 2024-12-09 06:21 | Inpatient (IN) | payer MEDICAID, SELFPAY ==
[2024-12-09] VITALS (53 sets, daily range): BP systolic 100–141; BP diastolic 53–90; PULSE 66–118; RESP 12–17; TEMP 36.5–37.1; O2SAT 85–100; BMI 32.1
[2024-12-09 06:44] LABS: HCT 32.3 % (36.0-46.0); HGB 10.4 g/dL (11.2-15.7); MCH 27.7 pg (27.0-33.0); MCHC 32.2 % (32.0-36.0); MCV 86 fL (80-95); MPV 10.2 fL (8.0-11.0); Platelet Count 248 10^3/uL (130-400); RBC 3.76 10^6/uL (3.93-5.22); RDW 13.3 % (11.7-14.6); RDW-SD 40.8 fL; WBC 12.48 10^3/uL (4.4-10.8)
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
--- NOTE | 2024-12-09 09:55 | W.OBNST ---
Date of service: 12/09/24 Time of Service: 07:00 NST Evaluation Reason for NST Reasons for Nonstress Test: OTHER, SEE COMMENT Reason for NST Other: Possible SROM Gestational Age Gestational Age in Weeks and Days: 38 Weeks and 6Days Test and Monitor Explained Test/Monitor Explained: Test Explained, Monitor Explained and Patient Verbalized Understanding Urine Results Urine Protein: Negative Urine Ketones: Negative Urine Glucose: Negative Urine Blood: Negative NST Information Date on Monitor: 12/09/24 Time on Monitor: 06:03 Date off Monitor: 12/09/24 Time off Monitor: 06:31 Total Time on Monitor: 28 NST Interventions: None Contraction Frequency: 1-4 NST Evaluation Patient States Movement: Present FHR Baseline: 140 Variability: Moderate 6-25 bpm Accelerations: 15x15 Decelerations: None NST Results: Reactive Note Ultrasound Done: N/A. NST Note NST Reviewed and Verified by: Stacia Su
--- NOTE | 2024-12-09 11:16 | W.PM.OBNL1 ---
Date of service: 12/09/24 Time of Service: 11:16 Pelvic Exam Comments: unable to get consent for exam, patient is too uncomfortable with contraction pain, prefers to go ahead with epidural and do cervical check after Contractions Contraction Frequency(min): 2-3 Contraction Duration(sec): 40-60 Intensity: Mild/Moderate Fetus A Monitor: Doppler Heart Rate Baseline: 130 Categories: Category I Accelerations: 15 X 15 Decelerations: None Amniotic Membrane Status: Ruptured Assessment Note: ROM 12 hours Assessment and Plan Assessment and plan (1) PROM (premature rupture of membranes): Status: Acute Assessment and plan: A: Spontaneous Labor following PROM ROM 12 hours Afebrile P: Epidural placement, SVE when comfortable Objective Abnormal lab results 12/09/24 Range/Units 06:40 WBC 12.48 H (4.4-10.8) 10^3/uL RBC 3.76 L (3.93-5.22) 10^6/uL Hgb 10.4 L (11.2-15.7) g/dL Hct 32.3 L (36.0-46.0) % Temp Pulse Resp BP 98.4 F 79 14 125/65 12/09/24 07:53 12/09/24 07:53 12/09/24 07:53 12/09/24 07:53 Laboratory Results WBC 12.48 10^3/uL (4.4-10.8) H 12/09/24 06:40 RBC 3.76 10^6/uL (3.93-5.22) L 12/09/24 06:40 Hgb 10.4 g/dL (11.2-15.7) L 12/09/24 06:40 Hct 32.3 % (36.0-46.0) L 12/09/24 06:40 MCV 86 fL (80-95) 12/09/24 06:40 MCH 27.7 pg (27.0-33.0) 12/09/24 06:40 MCHC 32.2 % (32.0-36.0) 12/09/24 06:40 RDW 13.3 % (11.7-14.6) 12/09/24 06:40 Plt Count 248 10^3/uL (130-400) 12/09/24 06:40 MPV 10.2 fL (8.0-11.0) 12/09/24 06:40 ABO/Rh O Positive 12/09/24 06:40 Antibody Screen NEGATIVE 12/09/24 06:40 Vital Signs Reviewed: Yes Objective Narrative Objective Narrative: Spontaneous labor, possible progression to active labor Subjective Interval history since last seen: Patient spent about an hour in the birthing tub this morning, PO intake good, voiding normally. Contraction pain has increased per patient with + bloody show. Now requesting epidural. Results Hemoglobin/Hematocrit: Hgb 10.4 g/dL (11.2-15.7) L 12/09/24 06:40 Hct 32.3 % (36.0-46.0) L 12/09/24 06:40 Abnormal Lab Findings: Abnormal Labs 12/09/24 06:40 WBC 12.48 H RBC 3.76 L Hgb 10.4 L Hct 32.3 L
[2024-12-09] MEDS: Lactated Ringers 1,000 ML 125 ML IV (11:30)
[2024-12-09] MEDS: FentaNYL/ROPIvacaine 2 mcg/ml and 0.1% 200 ML CADD Cassette EP (12:15)
--- NOTE | 2024-12-09 12:32 | W.ANESNEU ---
Epidural/Spinal Catheter Date Performed: 12/09/24 Procedure Start: 11:45 Procedure Stop: 12:20 Requesting Provider: Stacia Su Procedure Location: Obstetrics Reason Performed: Labor Epidural Standard Monitors Applied: ECG, Blood Pressure, SpO2 and See EMR for corresponding vital signs Patient Position: Sitting Sedation Given (Indicate Dose Given): No Sedation given Patient Mental Status: Awake Sterility: Hand Hygiene, Surgical Cap, Surgical Mask, Sterile Gloves, Sterile Drape/Sheet, Eye Protection and Chlorhexidine Procedure Location: L3-L4 Interspace Epidural Needle: Tuohy 18 Gauge Needle Length: 3.5 Inch Needle Approach: Midline Epidural Procedure: Skin Prepped, Sterile Drape Placed, 1% Lidocaine to skin and subcutaneous tissue with 25G needle, Tuohy Needle placed, BERRY to Saline Used, Epidural Catheter Placed, Negative Heme, Negative CSF Flow and Tuohy Needle Removed Catheter Placed?: Catheter Placed Test Dose (Indicate Dose Given): 3ml 1.5% Lidocaine with 1:200K Epinephrine Given and Negative Test Dose Loss of Resistance Depth (cm): 8 Catheter depth at skin (cm): 14 Dressing: [place] Dressing Placed, Tegaderm Applied, Mastisol Used and Dressing reinforced with Tape Epidural Provider Bolus (Indicate Dose Given): Total Ropivacaine 0.1% with Fentanyl 2mcg/ml Given from pump. (ml) Dose:: 7cc Additives (Indicate Dose Given ): None Infusion Medication: Medication Infusion Began Medication Infusion: Ropivacaine 0.1% with Fentanyl 2mcg/ml Maintenance Infusion Rate (ml/hour): 10 PCEA Bolus Dose (ml): 5 Post Procedure Pain score (0-10): 10 Block Level: T9 Paresthesia: None Ultrasound: Used to nancy site Number of Attempts (See previous attempts in note section): 2 (Had heme on first placement prior to reaching the ligament of flavum. Removed needle and changed location slightly (<1cm).) Procedure Tolerated: No Complications and Patient tolerated well Procedure Outcome: Successful Performed By: Jayesh Sandoval
--- NOTE | 2024-12-09 12:34 | W.PM.OBNL1 ---
Date of service: 12/09/24 Time of Service: 12:34 Pelvic Exam Dilation: 8.5 Effacement (%): 100 station: 0 Position: OA Cervix Position: anterior Contractions Monitor Mode: External Contraction Frequency(min): 3 Contraction Duration(sec): 50 Intensity: Moderate Fetus A Monitor: External (US) Heart Rate Baseline: 130 Presentation: Vertex Variability: Moderate (6-25 BPM) Categories: Category I FHR Rhythm: Regular Characteristics: Normal Accelerations: 15 X 15 Decelerations: None Amniotic Membrane Status: Ruptured Assessment and Plan Assessment and plan (1) PROM (premature rupture of membranes): Status: Acute Assessment and plan: A: Active Labor Epidural in place P: anticipated, SVE in 1 hour Objective Abnormal lab results 12/09/24 Range/Units 06:40 WBC 12.48 H (4.4-10.8) 10^3/uL RBC 3.76 L (3.93-5.22) 10^6/uL Hgb 10.4 L (11.2-15.7) g/dL Hct 32.3 L (36.0-46.0) % Temp Pulse Resp BP Pulse Ox 98.4 F 102 H 14 110/73 100 12/09/24 07:53 12/09/24 12:32 12/09/24 07:53 12/09/24 12:18 12/09/24 12:31 Laboratory Results WBC 12.48 10^3/uL (4.4-10.8) H 12/09/24 06:40 RBC 3.76 10^6/uL (3.93-5.22) L 12/09/24 06:40 Hgb 10.4 g/dL (11.2-15.7) L 12/09/24 06:40 Hct 32.3 % (36.0-46.0) L 12/09/24 06:40 MCV 86 fL (80-95) 12/09/24 06:40 MCH 27.7 pg (27.0-33.0) 12/09/24 06:40 MCHC 32.2 % (32.0-36.0) 12/09/24 06:40 RDW 13.3 % (11.7-14.6) 12/09/24 06:40 Plt Count 248 10^3/uL (130-400) 12/09/24 06:40 MPV 10.2 fL (8.0-11.0) 12/09/24 06:40 ABO/Rh O Positive 12/09/24 06:40 Antibody Screen NEGATIVE 12/09/24 06:40 Vital Signs Reviewed: Yes Objective Narrative Objective Narrative: Epidural in Place Subjective Interval history since last seen: Successful epidural in place, continues to feel significant pressure with contractions. Significant cervical change with recent exam. Active Labor Results Hemoglobin/Hematocrit: Hgb 10.4 g/dL (11.2-15.7) L 12/09/24 06:40 Hct 32.3 % (36.0-46.0) L 12/09/24 06:40 Abnormal Lab Findings: Abnormal Labs 12/09/24 06:40 WBC 12.48 H RBC 3.76 L Hgb 10.4 L Hct 32.3 L
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
--- NOTE | 2024-12-09 13:51 | OBVDS_ITS ---
Date of service: 12/09/24 Time of Service: 13:51 OB Labor/ Delivery Information Baby A Delivery Delivery Method: Spontaneaous Presentation: Vertex Cephalic Position: Vertex Vertex Position: Right Occipital Anterior Cord Description-Baby A: 3 Vessels and Reduced (around arm and leg) Amniotic Fluid: Clear Estimated Blood Loss: 25 Delivery Outcome: Liveborn Transferred: Remains with Mother Note: FHTs 130s during first stage of labor. FHTs 130sin second stage. She progressed to full dilation and began pushing. Second stage huddle was done. Spontaneous delivery of male infant delivered in RONNIE position. Baby was placed on mothe r's abdomen and dried and stimulated. Spontaneous cry. Cord was clamped and cut by Patrick IGNACIO . The placenta delivered spontaneously and appears to by intact with a three vessel cord. Pitocin IV was administered prior delivery of the placenta. The perineum was inspected and intact, bilateral periurethral shear unrepaired.. The baby did breastfeed. After delivery, Mother and baby and father of the baby were stable and bonding well in the delivery room and there were no complications. Providers Nurse Tablet Making Machine Operator Helper: Stacia Su Pet Store Merchandiser: Jayesh Sandoval Nurse: Tank Arita Nurse: Luly Crocker Labor/Delivery Information Number of Babies in Womb: 1 Group Beta Strep: Negative Antibiotics Administered: No Rubella Status: Immune Blood Type: O+ Varicella Immunity: Immune Maternal Complications: None and Premature Rupture of Membranes (14hrs) Shoulder Dystocia: No Stages of Labor Onset of Labor Date: 12/08/24 Onset of Labor Time: 23:00 ROM Baby A: 12/08/24 ROM Baby A: 23:00 Placenta Status: Delivered Baby A Infant Gender: Male Gestational Status: Early Term (37-38.6 wks) Score-1 Minute Interval(Baby A) Heart Rate-1 minute: 100 BPM or Greater Respiratory Effort- 1 minute: Spontaneous/Strong Cry Muscle Tone-1 minute: Active Movement Reflex Response-1 minute: Prompt Response Color-1 minute: Bluish Hands or Feet
--- NOTE | 2024-12-09 15:32 | W.ANESNEU ---
Epidural/Spinal Cath. Removal Date Performed: 12/09/24 Procedure Time: 15:32 Catheter Removal Type: Epidural Catheter Procedure Location: Obstetrics Patient Position: Sitting Catheter Removal Procedure: Dressing Removed, Catheter Removed without Resistance and Catheter Tip Intact Paresthesia: None Procedure Tolerated: No Complications and Patient tolerated well Procedure Outcome: Successful Performed By: Jayesh Sandoval
--- NOTE | 2024-12-09 15:33 | W.ANESPOSTOP ---
Postoperative Evaluation Date, Time and Location Date Performed: 12/09/24 Time Performed: 15:33 Patient Location: Obstetrics Vital Signs Most Recent Imported Vital Signs: Most Recent Vital Signs Temp Pulse Resp BP Pulse Ox 36.9 C 66 12 105/61 92 12/09/24 07:53 12/09/24 15:33 12/09/24 14:37 12/09/24 15:33 12/09/24 12:46 Assessment Mental Status: Awake (Alert & Oriented to Patient Baseline) Airway and Respiratory Function: Patent airway with normal (patient baseline) respiratory exam Cardiovascular Function: Hemodynamically Stable Hydration Status: Adequately Hydrated Nausea & Vomiting: No Nausea or Vomiting Pain: Pt. Denies Any Pain Peripheral Nerve Block: Patient did not receive a nerve block
[2024-12-09] MEDS: Ibuprofen 600 MG TAB PO (16:37)
[2024-12-09] MEDS: Acetaminophen 325 MG TAB 650 MG PO ×2 (17:26→22:56)
[2024-12-10 03:00] VITALS: BP 108/68; PULSE 87; RESP 18; TEMP 36.7
[2024-12-10 06:00] VITALS: BP 117/84; PULSE 66; TEMP 36.8
[2024-12-10 08:45] VITALS: BP 106/76; PULSE 73; RESP 12; TEMP 36.7
[2024-12-10] MEDS: Acetaminophen 325 MG TAB 650 MG PO ×3 (10:01→21:25)
--- NOTE | 2024-12-10 10:04 | OBPPV_ITS ---
Date of service: 12/10/24 Time of Service: 10:00 Assessment and Plan Assessment and plan (1) Term delivered: Status: Acute Assessment and plan: A: PPD#1, nml recovery Satisfied with experience is going slowly P: Routine PP care, support and counseling Expect discharge to home tomorrow Subjective Subjective Patient comments: No complaints, Pain well controlled, Tolerating diet and Flatus present Patient's Mood: happy baby status: Doing well, Rooming in and Strong Bonding Observed [place] feeding status: Exclusively breast feeding Exam Physical Exam Vital signs: Temp Pulse Resp BP Pulse Ox 98.1 F 73 12 106/76 92 12/10/24 08:45 12/10/24 08:45 12/10/24 08:45 12/10/24 08:45 12/09/24 12:46 Vital Signs Reviewed: Yes Constitutional Constitutional: no acute distress and cooperative HEENT Exam HEENT Exam: Normal Neck Exam Neck Exam: Normal Breast Exam Bilateral: Breast Exam: Normal and Soft Nipple Exam: Normal and Uninjured Respiratory Exam Respiratory Exam: Normal Cardiovascular Exam Cardiovascular Exam: Normal Abdominal Exam Abdomen: Other (soft, nontender) Fundal Exam Fundus: Below Umbilicus and Firm Rectal Exam Rectal Exam: Normal Exam Perineum: Normal Extremities Exam Extremity Exam: Normal, Full ROM and Warm to Touch Back/Spine/Pelvis Exam Back Exam: Normal Skin Exam Skin Exam: Normal Neurological Exam Neurological Exam: Normal Psychiatric Exam Psychiatric Exam: Normal
[2024-12-10 16:07] VITALS: BP 115/77; PULSE 91; RESP 16; TEMP 36.5; O2SAT 100
[2024-12-10 19:35] VITALS: BP 118/74; PULSE 87; RESP 17; TEMP 36.5; O2SAT 100
[2024-12-10] MEDS: Ibuprofen 600 MG TAB PO (21:24)
[2024-12-11] MEDS: Ibuprofen 600 MG TAB PO (06:34)
[2024-12-11] MEDS: Acetaminophen 325 MG TAB 650 MG PO ×2 (06:34→14:06)
[2024-12-11 07:38] VITALS: BP 105/71; PULSE 71; RESP 18; TEMP 36.7; O2SAT 97
--- NOTE | 2024-12-11 08:38 | W.PM.OBPNV1 ---
Date of service: 12/11/24 Time of Service: 08:38 Assessment and Plan Assessment and plan (1) Term delivered: Status: Acute Assessment and plan: A: PPD#2, nml recovery; Satisfied with experience is going slowly P: Expect discharge to home today POP's is BCM of choice, to start at 2 wks Written instructions reviewed and given to pt F/up at 2 & 6 weeks and prn Subjective Subjective Patient comments: No complaints, Pain well controlled, Tolerating diet and Flatus present Patient's Mood: tired but happy [place] baby status: Doing well, Nursing well, Supplemental feeding going well, Rooming in and Strong Bonding Observed feeding status: Exclusively breast feeding and Pumping and bottle feeding Narrative: received small amt of formula yesterday Exam Physical Exam Vital signs: Temp Pulse Resp BP Pulse Ox 98.1 F 71 18 105/71 97 12/11/24 07:38 12/11/24 07:38 12/11/24 07:38 12/11/24 07:38 12/11/24 07:38 Vital Signs Reviewed: Yes Constitutional Constitutional: no acute distress and cooperative HEENT Exam HEENT Exam: Normal Neck Exam Neck Exam: Normal Breast Exam Bilateral: Breast Exam: Normal and Soft Respiratory Exam Respiratory Exam: Normal Cardiovascular Exam Cardiovascular Exam: Normal Abdominal Exam Abdomen: Other (soft, nontender) Fundal Exam Fundus: Below Umbilicus and Firm Rectal Exam Rectal Exam: Normal Exam Perineum: Normal Extremities Exam Extremity Exam: Normal, Full ROM and Warm to Touch Back/Spine/Pelvis Exam Back Exam: Normal Skin Exam Skin Exam: Normal Neurological Exam Neurological Exam: Normal Psychiatric Exam Psychiatric Exam: Normal
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
[2024-12-11] MEDS: Hamamelis Leaf/Glycerin 100 EACH BOX PR (14:06)
== END 2024-12-11 16:20 | disposition home or self-care (01) | DRG 807 ==
PROVIDERS: Admitting Provider Advanced Practice Midwife; PCP Nurse Practitioner Women's Health; Visit Provider Advanced Practice Midwife
DX: O42.92 Full-term premature rupture of membranes, unspecified as to length of time between rupture and onset of labor (principal); Z37.0 Single live birth; Z3A.38 38 weeks gestation of pregnancy; O71.82 Other specified trauma to perineum and vulva
CPT/HCPCS: 36415; 85027; 86850; 86900; 86901

== ENCOUNTER 2025-03-13 23:48 | Emergency (ER) | payer MEDICAID, SELFPAY ==
[2025-03-13 23:42] VITALS: BP 111/56; PULSE 107; RESP 20; TEMP 37.4; O2SAT 97
[2025-03-13 23:46] VITALS: RESP 18; O2SAT 96
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
[2025-03-13] MEDS: Lactated Ringers 1,000 ML 1000 ML IV (23:59)
[2025-03-14] VITALS (9 sets, daily range): BP systolic 102–107; BP diastolic 45–50; PULSE 87–104; RESP 18–26; O2SAT 94–97
[2025-03-14] MEDS: Ondansetron 4 MG/2 ML VIAL IVP
[2025-03-14] MEDS: Ketorolac 15 MG/ML VIAL IVP
[2025-03-14 00:01] LABS: Abs Immature Grans 0.01 10^3/uL (0.0-0.06); Absolute Basophil Count 0.02 10^3/uL (0.0-0.2); Absolute Eosinophil Count 0.04 10^3/uL (0.0-0.7); Absolute Lymphocyte Count 0.39 10^3/uL (1.2-3.4); Absolute Monocyte Count 0.64 10^3/uL (0.1-0.8); Absolute Neutrophil Count 2.16 10^3/uL (1.2-6.7); Basophils % 0.6 %; Eosinophils % 1.2 %; HCT 30.3 % (36.0-46.0); HGB 9.8 g/dL (11.2-15.7); Immature Grans % 0.3 %; MCH 26.3 pg (27.0-33.0); MCHC 32.3 % (32.0-36.0); MCV 82 fL (80-95); MPV 9.8 fL (8.0-11.0); Monocytes % 19.6 %; Neutrophils % 66.3 %; Platelet Count 176 10^3/uL (130-400); RBC 3.72 10^6/uL (3.93-5.22); RDW 12.2 % (11.7-14.6); RDW-SD 36.4 fL; WBC 3.26 10^3/uL (4.4-10.8)
[2025-03-14 00:19] LABS: ALT 23 U/L (14-59); AST 14 U/L (15-37); Albumin 3.6 g/dL (3.4-5.0); Alkaline Phosphatase 84 U/L (46-116); BUN 18 mg/dL (7-18); Bilirubin, Total 0.5 mg/dL (0.2-1.0); CREATININE 0.6 mg/dL (0.55-1.02); Calcium 8.9 mg/dL (8.5-10.1); Chloride 108 mmol/L (98-107); Glucose 109 mg/dL (74-106); Lipase 36 U/L (<78); Magnesium 1.6 mg/dL (1.8-2.4); Potassium 3.8 mmol/L (3.5-5.1); Sodium 142 mmol/L (136-145); Total Protein 6.8 g/dL (6.4-8.2)
[2025-03-14] MEDS: MAGNESIUM SULFATE 2 GM/50 ML BAG IV_INF (00:47)
[2025-03-14 00:56] LABS: Bilirubin Negative (Negative); Blood Negative (Negative); Clarity Clear (Clear); Glucose Negative (Negative); Ketones Negative (Negative); Leukocyte Esterase Negative (Negative); Nitrite Negative (Negative); Specific Gravity 1.025 (1.005-1.025); Urobilinogen 0.2 mg/dL (Up to 0.2)
[2025-03-14] MEDS: Acetaminophen 500 MG TAB 1000 MG PO (01:07)
[2025-03-14] MEDS: Metoclopramide 10 MG/2 ML VIAL IVP (01:08)
[2025-03-14] MEDS: diphenhydrAMINE 50 MG/ML VIAL 25 MG IVP (01:08)
[2025-03-14] MEDS: Ondansetron O.D.T. 4 MG TABEF, 3 TABS/BTL PO (03:41)
== END 2025-03-14 03:44 | disposition home or self-care (01) ==
PROVIDERS: Emergency Provider Emergency Medicine
DX: R11.2 Nausea with vomiting, unspecified (principal); R51.9 Headache, unspecified; D64.9 Anemia, unspecified; E83.42 Hypomagnesemia; F17.200 Nicotine dependence, unspecified, uncomplicated
CPT/HCPCS: 80053; 81025; 83690; 96361; 96365; 96375; 99284; 81003; 83735; 85025; J1200; J1885; J2405; J2765; J3475

== ENCOUNTER 2025-03-24 18:54 | Outpatient (REF) | payer MEDICAID, SELFPAY ==
[2025-03-24 21:27] LABS: Abs Immature Grans 0.03 10^3/uL (0.0-0.06); Absolute Basophil Count 0.03 10^3/uL (0.0-0.2); Absolute Eosinophil Count 0.08 10^3/uL (0.0-0.7); Absolute Lymphocyte Count 0.94 10^3/uL (1.2-3.4); Absolute Monocyte Count 0.24 10^3/uL (0.1-0.8); Absolute Neutrophil Count 2.31 10^3/uL (1.2-6.7); Basophils % 0.8 %; Eosinophils % 2.2 %; HCT 30.7 % (36.0-46.0); HGB 9.8 g/dL (11.2-15.7); Immature Grans % 0.8 %; Lymphocytes % 25.9 %; MCH 25.5 pg (27.0-33.0); MCHC 31.9 % (32.0-36.0); MCV 80 fL (80-95); MPV 10.1 fL (8.0-11.0); Monocytes % 6.6 %; Neutrophils % 63.7 %; Platelet Count 263 10^3/uL (130-400); RBC 3.84 10^6/uL (3.93-5.22); RDW 12.2 % (11.7-14.6); RDW-SD 35.1 fL; WBC 3.63 10^3/uL (4.4-10.8)
[2025-03-24 21:28] LABS: ESR 12 mm/hr (0-20)
[2025-03-24 21:54] LABS: Anion Gap 10.1 mmol/L (3-11); BUN 13 mg/dL (7-18); CO2 25.9 mmol/L (21.0-32.0); CREATININE 0.6 mg/dL (0.55-1.02); Calcium 9.3 mg/dL (8.5-10.1); Chloride 104 mmol/L (98-107); Glucose 75 mg/dL (74-106); Magnesium 1.9 mg/dL (1.8-2.4); Sodium 140 mmol/L (136-145); TSH (W/Ref FT4) 0.01 uIU/mL (0.36-3.74)
[2025-03-24 22:11] LABS: FREE T4 1.47 ng/dL (0.76-1.46)
[2025-03-26 10:54] LABS: Lyme Ab w Rflx to Lyme Confirm Negative (Negative)
[2025-03-26 15:06] LABS: ANA Interpretation Negative (Negative)
[2025-03-28 13:54] LABS: Anaplasma phagocytophilum Negative (Negative); B. miyamotoi PCR Negative (Negative); Babesia divergens/MO-1 Negative (Negative); Babesia duncani Negative (Negative); Babesia microti Negative (Negative); Ehrlichia chaffeensis Negative (Negative); Ehrlichia ewingii/canis Negative (Negative); Ehrlichia muris eauclairensis Negative (Negative)
== END 2025-03-24 18:55 | disposition home or self-care (01) ==
LOC: LBN 18:54
PROVIDERS: Visit Provider Physician Assistant
DX: M79.18 Myalgia, other site (principal)
CPT/HCPCS: 80048; 85652; 87798; 83735; 84439; 84443; 85025; 86038; 86618

== ENCOUNTER 2025-03-25 17:26 | Emergency (ER) | payer MEDICAID, SELFPAY ==
[2025-03-25 17:30] VITALS: BP 119/80; PULSE 91; RESP 18; TEMP 36.5; O2SAT 99
--- NOTE | 2025-03-25 18:00 | DI.CT_ITS ---
Exam(s) CT HEAD WO/W EXAM: CT HEAD WO/W CLINICAL HISTORY: SARMIENTO, blurry vision, 3 mo post . TECHNIQUE: Imaging Protocol: Axial computed tomography images with coronal and sagittal reformatted images were created and reviewed. CONTRAST MATERIAL: Intravenous: Omnipaque 350 contrast volume:100 mL COMPARISON: No exams were available for comparison FINDINGS: Ventricles and Extra axial spaces: Normal in size and morphology for the patient's age. Hemorrhage: None. Cerebral parenchyma: Normal. Enhancement: No suspicious enhancement. [place]: Unremarkable. Midline shift: None. Brainstem/Cerebellum: Normal. Calvarium: Normal. Pituitary gland: Unremarkable. No suprasellar mass is seen. Visualized Paranasal sinuses/Mastoids: There is mucosal thickening in the right sphenoid sinus. Intracranial veins: The visualized sigmoid sinus, transverse sinus, superior sagittal sinus and straight sinuses are patent. IMPRESSION: 1. Normal CT scan of the head. 2. No significant intracranial vascular abnormalities identified. 3. The preliminary [facility] report was reviewed. RADIATION DOSE DELIVERED: 1,667.21mGy.cm Total DLP 1,667.21mGy.cm Total DLP DATA REPOSITORY: All CT scans at this facility are submitted to the National Radiology Data Registry (NRDR) Dose Index Registry (DIR) with the [employer] (A[employer]). RADIATION OPTIMIZATION: All CT scans at this facility use at least one of these dose optimization techniques: automated exposure control; mA and/or kV adjustment per patient size (includes targeted exams where dose is matched to clinical indication); or iterative reconstruction.
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
[2025-03-25 18:44] LABS: Abs Immature Grans 0.02 10^3/uL (0.0-0.06); Absolute Basophil Count 0.02 10^3/uL (0.0-0.2); Absolute Eosinophil Count 0.09 10^3/uL (0.0-0.7); Absolute Lymphocyte Count 1.07 10^3/uL (1.2-3.4); Absolute Monocyte Count 0.32 10^3/uL (0.1-0.8); Basophils % 0.6 %; Eosinophils % 2.5 %; HCT 31.8 % (36.0-46.0); HGB 10.2 g/dL (11.2-15.7); Immature Grans % 0.6 %; Lymphocytes % 29.6 %; MCH 25.8 pg (27.0-33.0); MCHC 32.1 % (32.0-36.0); MCV 81 fL (80-95); MPV 9.7 fL (8.0-11.0); Monocytes % 8.8 %; Neutrophils % 57.9 %; Platelet Count 261 10^3/uL (130-400); RBC 3.95 10^6/uL (3.93-5.22); RDW 12.2 % (11.7-14.6); RDW-SD 35.3 fL; WBC 3.62 10^3/uL (4.4-10.8)
[2025-03-25 18:50] LABS: Anion Gap 10.4 mmol/L (3-11); BUN 16 mg/dL (7-18); CO2 26.6 mmol/L (21.0-32.0); CREATININE 0.8 mg/dL (0.55-1.02); Calcium 9.9 mg/dL (8.5-10.1); Chloride 103 mmol/L (98-107); Estimated GFR 108.11 (mL/min/1.73m2); Glucose 84 mg/dL (74-106); Potassium 3.9 mmol/L (3.5-5.1); Sodium 140 mmol/L (136-145)
[2025-03-25] MEDS: Omnipaque 350 MG/ML 100 ML BTL IJ (19:05)
[2025-03-25] MEDS: Normal Saline Flush 10 ML SYR IVP (19:06)
[2025-03-25] MEDS: Normal Saline - Diluent 50 ML VIAL IJ (19:07)
[2025-03-25 19:31] LABS: Bilirubin Negative (Negative); Blood Negative (Negative); Clarity Clear (Clear); Glucose Negative (Negative); Ketones Negative (Negative); Leukocyte Esterase Negative (Negative); Nitrite Negative (Negative); Urobilinogen 0.2 mg/dL (Up to 0.2)
--- NOTE | 2025-03-25 20:36 | DI.[facility]AD_ITS ---
PROCEDURE INFORMATION: Exam: CT Head With Contrast Exam date and time: 03/25/2025 7:11 PM Age: 19 years old Clinical indication: Visual disturbance; SARMIENTO, blurry vision, 3 mo post TECHNIQUE: Imaging protocol: Computed tomography of the head with intravenous contrast. 3D rendering (Not supervised by radiologist): MIP and/or 3D reconstructed images were created by the technologist. Radiation optimization: All CT scans at this facility use at least one of these dose optimization techniques: automated exposure control; mA and/or kV adjustment per patient size (includes targeted exams where dose is matched to clinical indication); or iterative reconstruction. Contrast material: OMNIPAQUE 350; Contrast volume: 100 ml; Contrast route: INTRAVENOUS (IV); COMPARISON: US OB F/U FACIAL/LVOT/RVOT 08/02/2024 8:12 AM FINDINGS: Brain: Unremarkable white matter. No mass effect. No abnormal enhancing lesions. Cerebral ventricles: Unremarkable. No ventriculomegaly. Bones/joints: Unremarkable. No acute fracture. Paranasal sinuses: Moderate mucosal thickening in the right sphenoid sinus locule. Visualized portions of the paranasal sinuses otherwise appear clear. Mastoid air cells: Visualized mastoid air cells are well aerated. Soft tissues: Unremarkable. IMPRESSION: 1. No acute intracranial abnormality. No significant intracranial vascular abnormality 2. Moderate findings of right sphenoid sinusitis Dictated and Authenticated by: Nael Aguilar MD. Orderin [facility]. Ashok Quinn MD
[2025-03-25 21:10] VITALS: BP 119/80; PULSE 91; RESP 18; RESP 20; TEMP 36.5; O2SAT 99
[2025-03-25] MEDS: Doxycycline Hyclate 100 MG, 2 CAPS/BTL PO (21:10)
== END 2025-03-25 21:12 | disposition home or self-care (01) ==
PROVIDERS: Emergency Provider Emergency Medicine
DX: M25.442 Effusion, left hand (principal); M25.441 Effusion, right hand; M25.472 Effusion, left ankle; M25.471 Effusion, right ankle; F17.200 Nicotine dependence, unspecified, uncomplicated
CPT/HCPCS: 80048; 81025; 99285; 70470; 81003; 83735; 85025; 99284; J3490

== ENCOUNTER 2025-05-07 19:12 | Emergency (ER) | payer MEDICAID, SELFPAY ==
[2025-05-07 19:24] VITALS: BP 110/74; PULSE 80; RESP 20; TEMP 36.7; O2SAT 99
--- NOTE | 2025-05-07 20:45 | DI.RAD_ITS ---
Exam(s) XR HAND RT COMPLETE EXAM: XR HAND RT COMPLETE CLINICAL HISTORY: fall, 3rd MCP swelling. TECHNIQUE: 2D digital imaging was performed. COMPARISON: No exams were available for comparison FINDINGS: 3 views No evidence of fracture or dislocation nor abnormal soft tissue densities. Bone density normal. No osseous lesions nor erosions. IMPRESSION: No acute osseous findings. DATA REPOSITORY: RADIATION DOSE DELIVERED:
--- NOTE | 2025-05-07 21:30 | DI.VRAD_ITS ---
PROCEDURE INFORMATION: Exam: XR Right Hand Exam date and time: 05/07/2025 9:08 PM Age: 20 years old Clinical indication: Other: Fall, 3rd mcp swelling TECHNIQUE: Imaging protocol: Radiologic exam of the right hand. Views: 3 or more views. COMPARISON: No relevant prior studies available. FINDINGS: Bones/joints: Three views of the right hand reveal no acute fracture or dislocation. Soft tissues: No gross focal soft tissue abnormality is demonstrated. No radiopaque foreign body is seen. IMPRESSION: No acute fracture, dislocation, or other osseous abnormality seen in the right hand. Dictated and Authenticated by: Alexsander Agrawal MD. Orderin St. Ashok Quinn MD
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
[2025-05-07 21:56] VITALS: PULSE 92; TEMP 36.2; O2SAT 98
== END 2025-05-07 21:56 | disposition home or self-care (01) ==
PROVIDERS: Emergency Provider Emergency Medicine
DX: S60.221A Contusion of right hand, initial encounter (principal); W01.0XXA Fall on same level from slipping, tripping and stumbling without subsequent striking against object, initial encounter
CPT/HCPCS: 99283 ×2; 81025; 73130

== ENCOUNTER 2025-07-27 12:35 | Emergency (ER) | payer MEDICAID, SELFPAY ==
--- NOTE | 2025-07-27 12:30 | RT.EKG_ITS ---
APPROVED REPORT Exam: Resting ECG Reason for Exam: syncope Patient Location: E HR:114 bpm ECG Measurements Heart Rate 114 AXIS SC 132 P 38 QRSd 84 QRS 38 QT 321 T -8 QTc 442 Conclusion Sinus tachycardia...rate> 99 Nonspecific T abnrm, anterolateral leads...T <-0.10mV, I aVL V2-V6 No STEMI
[2025-07-27 12:36] VITALS: BP 100/68; PULSE 115; RESP 18; TEMP 37.1; O2SAT 97
[2025-07-27 13:33] LABS: Abs Immature Grans 0.13 10^3/uL (0.0-0.06); HCT 36.6 % (36.0-46.0); HGB 12.1 g/dL (11.2-15.7); Immature Grans % 0.8 %; MCH 27.1 pg (27.0-33.0); MCHC 33.1 % (32.0-36.0); MCV 82 fL (80-95); MPV 9.4 fL (8.0-11.0); Platelet Count 257 10^3/uL (130-400); RBC 4.46 10^6/uL (3.93-5.22); RDW 13.4 % (11.7-14.6); RDW-SD 39.5 fL; WBC 16.02 10^3/uL (4.4-10.8)
[2025-07-27] MEDS: Normal Saline 1,000 ML 1000 ML IV (13:35)
[2025-07-27] MEDS: Prochlorperazine 10 MG/2 ML VIAL IVP (13:35)
[2025-07-27 13:47] LABS: Glucose Negative (Negative)
[2025-07-27 14:01] LABS: ALT 21 U/L (14-59); AST 13 U/L (15-37); Albumin 4.1 g/dL (3.4-5.0); Alkaline Phosphatase 71 U/L (46-116); Anion Gap 10.1 mmol/L (3-11); BUN 14 mg/dL (7-18); Bilirubin, Total 0.7 mg/dL (0.2-1.0); CO2 26.9 mmol/L (21.0-32.0); Calcium 9.3 mg/dL (8.5-10.1); Chloride 103 mmol/L (98-107); Estimated GFR 107.44 (mL/min/1.73m2); Glucose 103 mg/dL (74-106); Lipase 18 U/L (<78); Magnesium 1.7 mg/dL (1.8-2.4); Potassium 4.1 mmol/L (3.5-5.1); Sodium 140 mmol/L (136-145); TSH (W/Ref FT4) 1.78 uIU/mL (0.36-3.74); Total Protein 8.2 g/dL (6.4-8.2)
[2025-07-27 14:13] LABS: HCG Qual (Serum) Negative
[2025-07-27 15:05] VITALS: BP 108/72; PULSE 110; O2SAT 99
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
== END 2025-07-27 15:11 | disposition home or self-care (01) ==
PROVIDERS: Emergency Provider Physician Assistant; PCP Nurse Practitioner Family
DX: R11.2 Nausea with vomiting, unspecified (principal); E83.42 Hypomagnesemia; Z59.41 Food insecurity; Z59.89 Other problems related to housing and economic circumstances; Z60.8 Other problems related to social environment
CPT/HCPCS: 80053; 81025; 83690; 93005; 96361; 96374; 99284; 81003; 83735; 84443; 84703; 85025; 93010; J0780